=== PATIENT | male | born 1975 | race Caucasian/White ===

== ENCOUNTER 2016-05-30 06:08 | Day surgery (SDC) | payer OTHER ==
[2016-05-28 15:20] VITALS: BMI 21.9
[~2016-05-30 06:08] MED LIST: DEXAMETHASONE SOD PHOSPHATE 10 MG/ML 1 ML VIAL IV ONE; HEPARIN SODIUM,PORCINE 5,000 UNIT/ML 1 ML VIAL SQ ONE; HYDROmorphone 1 MG/ML 1 ML SYRINGE IVP PRN; MIDAZOLAM 2 MG/2 ML VIAL IV PRN; ONDANSETRON 4 MG/2 ML VIAL IVP ONE; SCOPOLAMINE 1.5MG/72HR PATCH TRANSDERM ONE; ceFAZolin 2 GM in SODIUM CHLORIDE 0.9% 100 ML IVPB ONE
[2016-05-30] MEDS: LIDOCAINE 1% 20 ML VIAL (10MG/ML) FOR IV START INTRADERMA PRN ×2 (06:35→06:40)
[2016-05-30] MEDS: LACTATED RINGERS 1,000 ML IV SCH (06:39)
[2016-05-30] MEDS ORDERED: ePHEDrine 50 MG/ML 1 ML AMP ONE (07:30)
[2016-05-30] MEDS ORDERED: MIDAZOLAM 2 MG/2 ML VIAL ONE (07:30)
[2016-05-30] MEDS ORDERED: ROCURONIUM BROMIDE 10 MG/ML 10 ML VIAL IV ONE (07:30)
[2016-05-30] MEDS ORDERED: fentaNYL (PF) 50 MCG/ML 2 ML AMP ONE (07:30)
[2016-05-30] MEDS ORDERED: GLYCOPYRROLATE 0.2 MG/ML 2 ML VIAL ONE (07:30)
[2016-05-30] MEDS ORDERED: PROPOFOL 10 MG/ML 20 ML VIAL IV ONE (07:30)
[2016-05-30] MEDS ORDERED: SUCCINYLCHOLINE CHLORIDE 100 MG/5 ML SYR IV ONE (07:30)
[2016-05-30] MEDS ORDERED: LIDOCAINE 1% INJ 10MG/ML (20 ML MDV) ONE (07:30)
[2016-05-30] MEDS ORDERED: NEOSTIGMINE 1 MG/ML 10 ML VIAL ONE (07:30)
[2016-05-30] MEDS ORDERED: BUPIVACAIN-EPI 0.25%-1:200,000 30 ML VIAL SQ ONE ×2 (07:57)
--- NOTE | 2016-05-30 09:08 | P.OP ---
Date of Procedure: 05/30/16 Preoperative Diagnosis: Painful left inguinal swelling Postoperative Diagnosis: Left direct inguinal hernia Procedure(s) Performed: Robot assisted left inguinal hernia repair with mesh Implants: 10 x 15 cm uncut Bard Progrip mesh Anesthesia: JOHN Surgeon: Braulio Castillo Estimated Blood Loss (ml): 7 Pathology: none sent Condition: stable Disposition: PACU Indications for Procedure: Pain and swelling in the left inguinal region Operative Findings: Direct inguinal hernia Dilated internal ring on the left Description of Procedure: Informed consent was obtained patient and then The patient was brought to the operating room and placed in supine position. General anesthesia with endotracheal intubation was performed as per anesthesia team. A valencia catheter was inserted under sterile aseptic precautions. Chlorhexidine was used to prep the skin followed by application of sterile drapes . He was placed in the lithotomy positionA timeout was performed to verify correct patient, correct procedure and correct side. Patient was confirmed to receive perioperative IV antibiotics, subcutaneous heparin 5000 units and bilateral SCDs were placed. The left upper quadrant point was identified and a stab incision was made. Veress needle was introduced and placement was confirmed with the help of the drop test. The abdomen was then insufflated to 15 mmHg. Once that was done 5 mm port was introduced into the left upper quadrant using the Optiview technique after which a 12 mm port was placed in the supraumbilical position and a 8 mm port in the right lower quadrant and then after that the left-sided 5 mm port was replaced with a robot 8 mm port under direct vision. The robot was then docked with the central camera port and the 2 side working ports. The scope was introduced and the abdomen down through the 12 mm port site. Cardiere was taken in the left hand and scissor in the right hand was introduced in the abdominal cavity after which the median umbilical fold was retracted laterally towards the left side a small incision was made at the junction of the umbilical fold and the peritoneum and carried all the way laterally thus creating a small plane in the preperitoneal space. This did this was further dissected with the help of blunt dissection using gentle stroking maneuvers all the way down to Black ligament medially and laterally we went inferior exposing the vessels inferiorly. The vas was identified and there was no indirect hernia sac. The direct hernia was reduced. A dilated left-sided internal ring was identified but there was no hernia sac and appeared. [employer] mesh was introduced in the abdominal cavity with the lower part above the level of the peritoneal fold was then unfolded so that it covered all the orifices and covered the Black's ligament medially once again pain positioned perfectly to seal was applied to the inferior edge of the mesh as well as around the Black's ligament after which the peritoneal flaps were closed with the help of running 0 v loc suture once that was done procedure was completed all incisions and camera was removed and a laparoscope was introduced and the 12 mm port site was closed with the help of a Justin Layne the direct vision after which gas was turned off abdomen was thoroughly desufflated skins was closed with the help of 4-0 Monocryl and Dermabond. Valencia catheter was removed patient was extubated and taken to recovery room in stable condition patient tolerated the procedure well there were no complications
[2016-05-30 09:17] VITALS: TEMP 97.6
[2016-05-30 09:23] VITALS: RESP 16
[2016-05-30] MEDS ORDERED: HYDROcodone/APAP 5-325MG 1 EACH TAB PO ONE (10:26)
[2016-05-30 12:47] VITALS: BP 133/76; PULSE 81
== END 2016-05-30 12:58 | disposition home or self-care (01) ==
LOC: OR 06:08
PROVIDERS: ATTEND Surgery
DX: K40.90 Unilateral inguinal hernia, without obstruction or gangrene, not specified as recurrent (principal)
CPT/HCPCS: 49650; S2900

== ENCOUNTER 2023-11-24 09:58 | Emergency (ER) | payer OTHER, BC ==
[2023-11-24] MEDS ORDERED: KETOROLAC 15 MG/ML 1 ML VIAL ONE (11:15)
--- NOTE | 2023-12-23 10:15 | XR ---
JaskaranSimone ID [id number] EXAMINATION TYPE: XR knee 4V RT DATE OF EXAM: 11/24/2023 COMPARISON: NONE HISTORY: 48-year-old male pain and swelling TECHNIQUE: 4 views FINDINGS: Permanent anterior soft tissue swelling especially along the infrapatellar region. Trace mike int effusion is present. No acute fracture, subluxation, dislocation. IMPRESSION: Marked anterior infrapatellar soft tissue swelling. Only a trace underlying joint effusio n is present. No acute osseous abnormality seen.
== END 2023-11-24 12:19 | disposition home or self-care (01) ==
LOC: EC 09:58
DX: M25.561 Pain in right knee (principal)
CPT/HCPCS: 96372; 99283